=== PATIENT | female | born 1960 | race African-American/Black ===

== ENCOUNTER 2022-01-24 19:53 | Emergency (ER) | payer MEDICARE ==
[~2022-01-24] VITALS: Ht 175.3 cm; Wt 94.0 kg
[~2022-01-24 19:53] MED LIST: BLACK COHOS1 PO; CALCIUM + D600 MG OR; CYCLOBENZAPR10 MG PO; DIOVAN80 MG OR; ELAVIL25 MG OR; FERROUS SUL2 OR; FERROUS SULF325 M1 OR; FUROSEMIDE20 MG PO; GLYBURIDE5 M1 PO; HYDROCHLOROT25 MG PO; HYDROXYCHLOR200 MG OR; IBUPROFEN800 MG OR; INDERAL10 MG OR; LEVAQUIN500 MG OR; LISINOPRIL10 MG PO; LORTAB 5-325 MG1 TAB PO; LORTAB5 OR; LOSARTAN POTASS50 MG PO; LOTRISONE TOP; LOVASTATIN20 MG PO; MAXALT10 MG OR; METFORMIN500 MG PO; MOTRIN800 MG/TAB PO; MULTI VIT OR; PREMARIN0.625 MG OR; PROTONIX40 M2 OR; QUINACRINE PO; TRAMADOL HCL50 MG PO
[2022-01-24 21:35] VITALS: BP 144/79
== END 2022-01-24 21:41 | disposition home or self-care (01) ==
LOC: ED 19:53
DX: S93.401A Sprain of unspecified ligament of right ankle, initial encounter (principal); W18.39XA Other fall on same level, initial encounter; S80.212A Abrasion, left knee, initial encounter; S80.11XA Contusion of right lower leg, initial encounter

== ENCOUNTER 2023-01-22 09:03 | Emergency (ER) | payer MEDICARE ==
[~2023-01-22] VITALS: Ht 175.3 cm; Wt 93.4 kg
[2023-01-22] VITALS (7 sets, daily range): BP systolic 114–149; BP diastolic 70–79
== END 2023-01-22 11:45 | disposition home or self-care (01) ==
LOC: ED 09:03
DX: S92.424A Nondisplaced fracture of distal phalanx of right great toe, initial encounter for closed fracture (principal); I10 Essential (primary) hypertension; E11.9 Type 2 diabetes mellitus without complications; W20.8XXA Other cause of strike by thrown, projected or falling object, initial encounter; Y93.89 Activity, other specified; Y92.009 Unspecified place in unspecified non-institutional (private) residence as the place of occurrence of the external cause; Z79.84 Long term (current) use of oral hypoglycemic drugs